=== PATIENT | male | born 1995 | race Caucasian/White ===

== ENCOUNTER 2019-08-16 19:39 | Emergency (ER) | payer OTHER, SELFPAY ==
[2019-08-16 19:41] VITALS: BP 138/82; PULSE 88; RESP 16; TEMP 37.1; O2SAT 99; BMI 20.5
--- NOTE | 2019-08-16 19:54 | PC.NURSE ---
Patient is with sitter in preparation to move patient to SI precaution room.
--- NOTE | 2019-08-16 20:03 | ED_ITS ---
HPI - Psych General: Chief Complaint: Psychiatric Symptoms Stated Complaint: SI Time Seen by Provider: 08/16/19 20:03 Source: patient Mode of arrival: ambulatory Limitations: no limitations History of Present Illness: HPI Narrative: Patient was brought in by law enforcement today for patient having suicidal thoughts. Patient reports that since last Saturday on the when his relationship with his fiberonica?e came to an end he started feeling depressed and having thoughts of suicide. Over the week patient felt worse and worse and started having plans to commit suicide with the use of sleeping medication that he would get from [id number]. Patient appears well. Patient appears in no acute distress. Patient reports a previous episode when he was 19 years old in a similar situation when he broke up with a girlfriend he became depressed and suicidal. At that time patient did not have treatment and improved in time. Patient has never been on medication for depres munir or anxiety. Patient does not take any routine medication or [id number] medication. MD complaint: suicidal ideation and feels depressed Associated symptoms: Reports suicidal ideation Review of Systems General: Reports: 10 or more systems reviewed and unremarkable except in HPI and below Psych: Reports: suicidal ideation [facility] ED PFSH: Social History Smoking and tobacco status: never smoked Physical Exam Const: COMMON NORMALS: no apparent distress and oriented x3 GENERAL APPEARANCE: cooperative HENMT: COMMON NORMALS: normocephalic, external ears normal, EAC's normal, TM's normal bilaterally and external nose normal HEAD & SCALP: normal to inspection and normocephalic FACE & SINUS: normal facial exam NOSE: external nose normal GENERAL EAR: hearing not grossly impaired EXTERNAL EAR: Yes external ears normal EXTERNAL AUDITORY CANAL: EAC's normal TYMPANIC MEMBRANE: TM's normal bilaterally MOUTH: oral and palatal mucosa normal THROAT: posterior oropharynx normal Eye: COMMON NORMALS: PERRL and EOMs intact bilaterally PUPIL: Yes PERRL Neck/C-Spine: COMMON NORMALS: full ROM and no lymphadenopathy Lymph: LYMPHATIC: no lymphedema noted Chest: COMMONS NORMALS: inspection of chest normal and palpation of chest normal Resp: COMMON NORMALS: normal respiratory effort and clear to auscultation bilaterally AUSCULTATION: clear to auscultation bilaterally Cardio: COMMON NORMALS: regular rate and regular rhythm RATE: regular rate RHYTHM: regular rhythm GI: COMMON NORMALS: normal to inspection, nondistended, normoactive bowel sounds and non-tender : COMMON NORMALS: Yes no CVA tenderness BLADDER/KIDNEY EXAM: Yes no CVA tenderness Back/Pelvis: COMMON NORMALS: no CVA tenderness and thoracic and lumbar spine normal to inspection Extremity: COMMON NORMALS: normal to inspection GENERAL: No edema Neuro: COMMON NORMALS: oriented x3, moves all extremities and no focal motor deficits Psych: COMMON NORMALS: mental status grossly normal, thought process normal, cooperative and speech normal APPEARANCE: Yes grossly normal ATTITUDE: Yes calm ACTIVITY/MOTOR BEHAVIOR: Yes appropriate eye contact SPEECH: Yes normal speech MOOD & AFFECT: Yes depressed mood and Yes tearful THOUGHT PROCESS: normal thought process THOUGHT CONTENT: Yes suicidality ATTENTION/CONCENTRATION: Yes attention grossly intact MEMORY/COGNITION: Yes memory grossly intact INSIGHT: insight good JUDGEMENT: fair Skin: COMMON NORMALS: no rashes or lesions noted GENERAL SKIN EXAM: no rashes or lesions noted MDM - Psych MDM Narrative: Medical decision making narrative: Patient comes in today for complaints of suicidal thoughts with threat to harm himself. Patient reports that he has had a recent break-up with an girlfriend that he was engaged to. Patient reports that he has been thinking about and harming himself for the last week and sought help tonight. Patient is cooperative. Exam notes no physical abnormalities. Vital signs were normal. Differential diagnosis includes adjustment disorder, major depression, suicidal ideation. Laboratory values were normal. No signs of alcohol intoxication or drug use. Reviewed with patient recommended admission to the hospital for further evaluation and treatment. At this time patient was agreeable to plan. Contacted [facility] due to no available beds within our [facility], they agreed to transport and admission to their unit. Patient agreed to plan. Lab Data: Labs: Lab Results 08/16/19 08/16/19 08/16/19 Range/Units 20:10 20:10 20:20 WBC 5.4 (4.0-10.0) 10^3/ uL RBC 4.69 (4.1-5.3) 10^6/u L Hgb 14.2 (11.7-16.6) g/dL Hct 42.1 (42.0-52.0) % MCV 89.8 (80-94) fL MCH 30.3 (28.0-34.0) pg MCHC 33.7 (30.0-36.0) g/dL RDW 11.1 L (12.1-15.1) % Plt Count 241 (130-400) 10^3/c mm MPV 10.7 H (7.4-10.4) fL Neut % (Auto) 64.6 % Lymph % (Auto) 24.4 % [place] % (Auto) 9.3 % Eos % (Auto) 0.9 % Baso % (Auto) 0.6 % Neut # (Auto) 3.5 (1.8-7.7) 10^3/u L Lymph # (Auto) 1.3 (0.8-4.8) 10^3/u L [place] # (Auto) 0.5 (0.2-0.9) 10^3/u L Eos # (Auto) 0.1 (0.0-0.8) 10^3/u L Baso # (Auto) 0.0 (0.0-0.1) 10^3/u L Nucleated RBC % (a uto) 0 % Nucleated RBCs # 0.0 /100WBC Sodium (136-145) mmol/L Potassium (3.5-5.1) mmol/L Chloride (98-107) mmol/L Carbon Dioxide (22-29) mmol/L Anion Gap (5-19) BUN (6-20) mg/dL Creatinine (0.7-1.2) mg/dL GFR Calculation (90-130) mL/min Glucose (65-115) mg/dL Calculated Osmolal ity (285-295) mOsm/k g Calcium (8.5-10.5) mg/dL Total Bilirubin (0.15-1.2) mg/dL AST (0-40) U/L ALT (0-41) U/L Alkaline Phosphata se (40-130) IU/L Total Protein (6.6-8.7) g/dL Albumin (3.5-5.2) g/dL Globulin (1.3-4.6) g/dL TSH (0.27-4.20) uIU/ mL Urine Color Yellow (Yellow) Urine Appearance Clear (CLEAR) Urine pH 6 (5-7) Ur Specific Gravit y 1.025 (1.005-1.030) Urine Protein Neg (Negative) Urine Glucose (UA) Norm (Normal) Urine Ketones Negative (Negative) Urine Blood Neg (Negative) Urine Nitrate Negative (Negative) Urine Bilirubin Neg (NEGATIVE) Urine Urobilinogen Norm (Negative) mg/dL Ur Leukocyte [place] ase Negative (Negative) Salicylates (3-10) mg/dL Urine Opiates Scre en Negative (Negative) ng/mL Acetaminophen (10-30) ug/mL Ur Barbiturates Sc reen Negative (Negative) ng/mL Ur Phencyclidine S crn Negative (Negative) ng/mL Ur Amphetamines Sc reen Negative (Negative) ng/mL U Benzodiazepines Scrn Negative (Negative) ng/mL Urine Cocaine Scre en Negative (Negative) ng/mL U Marijuana (THC) Screen Negative (Negative) ng/mL Ethyl Alcohol (0-10) mg/dL 08/16/19 Range/Units 20:20 WBC (4.0-10.0) 10^3/ uL RBC (4.1-5.3) 10^6/u L Hgb (11.7-16.6) g/dL Hct (42.0-52.0) % MCV (80-94) fL MCH (28.0-34.0) pg MCHC (30.0-36.0) g/dL RDW (12.1-15.1) % Plt Count (130-400) 10^3/c mm MPV (7.4-10.4) fL Neut % (Auto) % Lymph % (Auto) % [place] % (Auto) % Eos % (Auto) % Baso % (Auto) % Neut # (Auto) (1.8-7.7) 10^3/u L Lymph # (Auto) (0.8-4.8) 10^3/u L [place] # (Auto) (0.2-0.9) 10^3/u L Eos # (Auto) (0.0-0.8) 10^3/u L Baso # (Auto) (0.0-0.1) 10^3/u L Nucleated RBC % (a uto) % Nucleated RBCs # /100WBC Sodium 143 (136-145) mmol/L Potassium 3.3 L (3.5-5.1) mmol/L Chloride 106 (98-107) mmol/L Carbon Dioxide 27 (22-29) mmol/L Anion Gap 13.3 (5-19) BUN 9 (6-20) mg/dL Creatinine 0.9 (0.7-1.2) mg/dL GFR Calculation 104.6 (90-130) mL/min Glucose 134 H (65-115) mg/dL Calculated Osmolal ity 294 (285-295) mOsm/k g Calcium 9.7 (8.5-10.5) mg/dL Total Bilirubin 0.6 (0.15-1.2) mg/dL AST 14 (0-40) U/L ALT 7 (0-41) U/L Alkaline Phosphata se 53 (40-130) IU/L Total Protein 6.7 (6.6-8.7) g/dL Albumin 4.5 (3.5-5.2) g/dL Globulin 2.2 (1.3-4.6) g/dL TSH 1.94 (0.27-4.20) uIU/ mL Urine Color (Yellow) Urine Appearance (CLEAR) Urine pH (5-7) Ur Specific Gravit y (1.005-1.030) Urine Protein (Negative) Urine Glucose (UA) (Normal) Urine Ketones (Negative) Urine Blood (Negative) Urine Nitrate (Negative) Urine Bilirubin (NEGATIVE) Urine Urobilinogen (Negative) mg/dL Ur Leukocyte [place] ase (Negative) Salicylates 0.5 L (3-10) mg/dL Urine Opiates Scre en (Negative) ng/mL Acetaminophen < 5.0 L (10-30) ug/mL Ur Barbiturates Sc reen (Negative) ng/mL Ur Phencyclidine S crn (Negative) ng/mL Ur Amphetamines Sc reen (Negative) ng/mL U Benzodiazepines Scrn (Negative) ng/mL Urine Cocaine Scre en (Negative) ng/mL U Marijuana (THC) Screen (Negative) ng/mL Ethyl Alcohol < 10 (0-10) mg/dL Discharge Plan Discharge Patient Disposition: Xfer Psychiatric Hosp Clinical Impression: Suicidal ideation Condition: Stable Referrals: Ashwin Oneill MD [Family Provider] - Coding Level of Care Code ED [employer] for g Fwd Exam Comprehensive
[2019-08-16 20:35] LABS: Basophils % 0.6 %; Eosinophils # 0.1 10^3/uL (0.0-0.8); Eosinophils % 0.9 %; Hematocrit 42.1 % (42.0-52.0); Hemoglobin 14.2 g/dL (11.7-16.6); Lymphocytes # 1.3 10^3/uL (0.8-4.8); Lymphocytes % 24.4 %; Mean Corpuscular HGB Conc 33.7 g/dL (30.0-36.0); Mean Corpuscular Hemoglobin 30.3 pg (28.0-34.0); Mean Corpuscular Volume 89.8 fL (80-94); Mean Platelet Volume 10.7 fL (7.4-10.4); Monocytes # 0.5 10^3/uL (0.2-0.9); Monocytes % 9.3 %; Neutrophils # 3.5 10^3/uL (1.8-7.7); Neutrophils % 64.6 %; Nucleated Red Blood Cells % 0 %; Platelet Count 241 10^3/cmm (130-400); Red Blood Count 4.69 10^6/uL (4.1-5.3); Red Cell Distribution Width 11.1 % (12.1-15.1); White Blood Count 5.4 10^3/uL (4.0-10.0)
[2019-08-16 20:37] LABS: Add Urine Microscopic? NO
[2019-08-16 20:43] LABS: Bilirubin Urine Neg (NEGATIVE); Blood Urine Neg (Negative); Glucose Urine UA Norm (Normal); Ketones Urine Negative (Negative); Leukocyte Esterase Urine Negative (Negative); Nitrate Urine Negative (Negative); Protein Urine Neg (Negative); Specific Gravity, Urine 1.025 (1.005-1.030); Urine Appearance Clear (CLEAR); Urine Color Yellow (Yellow); Urobilinogen Urine Norm (Negative); pH Urine 6 (5-7)
[2019-08-16 20:51] LABS: Amphetamines Screen Urine Negative (Negative); Barbiturates Screen Urine Negative (Negative); Benzodiazepines Screen Urine Negative (Negative); Cocaine Screen Urine Negative (Negative); Opiate Screen Urine Negative (Negative); PCP Screen Urine Negative (Negative); THC Screen Urine Negative (Negative)
[2019-08-16 21:03] LABS: Alanine Aminotransferase 7 U/L (0-41); Albumin Level 4.5 g/dL (3.5-5.2); Alkaline Phosphatase 53 IU/L (40-130); Anion Gap 13.3 (5-19); Aspartate Amino Transferase 14 U/L (0-40); Blood Urea Nitrogen 9 mg/dL (6-20); Calcium 9.7 mg/dL (8.5-10.5); Carbon Dioxide 27 mmol/L (22-29); Chloride 106 mmol/L (98-107); Globulin 2.2 g/dL (1.3-4.6); Glomerular Filtration Rate 104.6 mL/min (90-130); Glucose 134 mg/dL (65-115); Osmolality Calculated 294 mOsm/kg (285-295); Potassium 3.3 mmol/L (3.5-5.1); Salicylate 0.5 mg/dL (3-10); Sodium 143 mmol/L (136-145); Thyroid Stimulating Hormone 1.94 uIU/mL (0.27-4.20); Total Bilirubin 0.6 mg/dL (0.15-1.2); Total Protein 6.7 g/dL (6.6-8.7)
[2019-08-16 21:11] LABS: Acetaminophen < 5.0 ug/mL (10-30); Alcohol Level < 10 mg/dL (0-10)
[2019-08-16 22:21] VITALS: BP 120/63; PULSE 63; RESP 17; O2SAT 99
== END 2019-08-16 22:21 ==
PROVIDERS: Emergency Provider Nurse Practitioner Family; Family Provider Family Medicine
DX: R45.851 Suicidal ideations (principal)
CPT/HCPCS: 12345; 80053; 80306; 80307; 81003; 84443; 85025; 99284; 99285; A9270

== ENCOUNTER → 2019-08-27 13:23 | Outpatient (BNVA) | payer SELFPAY | PROVIDERS: Family Provider Family Medicine; Visit Provider Psychiatry & Neurology Neurology | DX: F43.21 Adjustment disorder with depressed mood (principal) | CPT/HCPCS: 90791 ==

== ENCOUNTER → 2019-09-01 12:48 | Outpatient (BNVA) | payer OTHER, SELFPAY | PROVIDERS: Family Provider Family Medicine; Visit Provider Counselor Professional | DX: F43.21 Adjustment disorder with depressed mood (principal) | CPT/HCPCS: 90834 ==

== ENCOUNTER → 2019-09-07 09:30 | Outpatient (BNVA) | payer OTHER, SELFPAY | PROVIDERS: Family Provider Family Medicine; Visit Provider Counselor Professional | DX: F43.21 Adjustment disorder with depressed mood (principal) | CPT/HCPCS: 90832 ==

== ENCOUNTER → 2019-09-28 08:23 | Outpatient (BNVA) | payer OTHER, SELFPAY | PROVIDERS: Family Provider Family Medicine; Visit Provider Psychiatry & Neurology Psychiatry | DX: F33.41 Major depressive disorder, recurrent, in partial remission (principal); Z51.81 Encounter for therapeutic drug level monitoring; F43.12 Post-traumatic stress disorder, chronic | CPT/HCPCS: 99205 ==